=== PATIENT | female | born 1950 | race Caucasian/White ===

== ENCOUNTER 2021-11-11 16:49 | Emergency (ER) | payer MEDICARE, OTHER ==
[~2021-11-11] VITALS: Ht 162.6 cm; Wt 85.2 kg
[2021-11-11 19:16] VITALS: BP 165/79
[2021-11-11 21:14] LABS: HEMATOCRIT 38.1 % (36.0-47.0); HEMOGLOBIN 12.5 g/dL (12.0-15.5); RED BLOOD COUNT 4.19 x10^6/uL (3.50-5.40); RED CELL DISTRIBUTION WIDTH 15.5 % (11.5-14.5); WHITE BLOOD COUNT 5.8 x10^3/uL (4.0-11.0)
[2021-11-11 21:28] LABS: POTASSIUM 3.9 mmol/L (3.5-5.1)
--- NOTE | 2021-11-11 21:46 | PHYS DOC ---
Past Medical History Additional Past Medical Histor: gerd, high colesterol, seasonal allergies Past Surgical History: No Surgical History Smoking Status: Never Smoker Alcohol Use: None Adult General Chief Complaint Chief Complaint: HYPOTENSION HPI HPI The patient is a 70-year-old female with a history of hyperlipidemia and what sounds like chronic fatigue. She tells me she has not been able to work for 3 years because she intermittently becomes very fatigued. She presents for evaluation of an episode of her typical fatigue. She states she became fatigued over the past couple of days. She called her doctor's office and related concern that her blood pressure might be low and was evidently directed to the emergency department for evaluation. Upon initial evaluation here in the emergency department patient is alert and oriented x4, pleasantly and appropriately interactive and in absolutely no acute distress. She is ambulatory with a narrow, steady gait. Her vital signs are completely appropriate and her blood pressure is actually a little elevated. She relates that she has had extensive diagnostic testing for her episodes of fatigue including extensive cardiac testing. No etiology has been identified. Patient tells me that nothing new or different is going on today; this is simply an episode of her usual chronic fatigue which she frequently has. She denies associated fevers, nausea or vomiting, headache, focal or lateralizing weakness, numbness or tingling, neck stiffness/pain/meningismus, vision changes, upper respiratory congestion/rhinorrhea, cough, sore throat, shortness of breath or chest pain of any kind, abdominal pain of any kind, flank pain, midline back pain, dysuria, hematuria, polyuria or oliguria, changes in bowel habits, pain or swelling to arms or legs. Review of Systems Review of Systems A 12 point review of systems was completed and was negative except where noted in HPI above. Physical Exam Physical Exam 70-year-old female appearing nontoxic and in no acute distress. Head is normocephalic and atraumatic. Neck is supple and nontender. Oropharynx is moist. Lungs are clear to auscultation at all stations. There is a normal S1 and S2 without rubs or gallops and capillary refill is appropriate, less than 2 seconds globally. Abdomen is soft, nontender and nondistended. Skin is warm and dry without cyanosis, clubbing or edema. Psychiatrically, the patient demonstrates appropriate mood and affect and is alert. Evaluation of the extremities reveals BUEs and BLEs neurovascularly intact distally with strength out of 5, sensation intact light touch in all nerve distributions, radial, DP and PT pulses 2+ equal bilaterally, capillary refill less than 2 seconds, hands and feet warm and well-perfused. No dependent peripheral edema distally. No calf tenderness or swelling bilaterally. Casey's test is negative bilaterally. Current Patient Data Vital Signs Vital Signs Date Time Temp Pulse Resp B/P (MAP) Pulse Ox O2 Delivery O2 Flow Rate FiO2 11/11/21 19:16 165/79 (107) 11/11/21 19:11 72 18 95 Room Air 11/11/21 17:31 98.3 98.3 Lab Values Laboratory Tests Test 11/11/21 21:05 White Blood Count 5.8 x10^3/uL (4.0-11.0) Red Blood Count 4.19 x10^6/uL (3.50-5.40) Hemoglobin 12.5 g/dL (12.0-15.5) Hematocrit 38.1 % (36.0-47.0) Mean Corpuscular Volume 91 fL (79-100) Mean Corpuscular Hemoglobin 30 pg (25-35) Mean Corpuscular Hemoglobin Concent 33 g/dL (31-37) Red Cell Distribution Width 15.5 % (11.5-14.5) H Platelet Count 254 x10^3/uL (140-400) Sodium Level 140 mmol/L (136-145) Potassium Level 3.9 mmol/L (3.5-5.1) Chloride Level 104 mmol/L (98-107) Carbon Dioxide Level 29 mmol/L (21-32) Anion Gap 7 (6-14) Blood Urea Nitrogen 20 mg/dL (7-20) Creatinine 1.0 mg/dL (0.6-1.0) Estimated GFR (Cockcroft-Gault) 55.0 Glucose Level 87 mg/dL (70-99) Calcium Level 9.0 mg/dL (8.5-10.1) Laboratory Tests 11/11/21 21:05 Laboratory Tests 11/11/21 21:05 EKG EKG [] Radiology/Procedures Radiology/Procedures [] Course & Med Decision Making Course & Med Decision Making Labs are within normal limits. Acute episode of a very chronic issue with no findings of concern on exam and normal vital signs. Will release the patient to follow-up closely with primary care. She understands that if she feels worse instead of better or develops other new symptoms of concern that she will need to return to the emergency department immediately for reevaluation. All questions are answered. Dragon Disclaimer Dragon Disclaimer This electronic medical record was generated, in whole or in part, using a voice recognition dictation system. Departure Departure Impression: Primary Impression: Encounter for medical screening examination Disposition: HOME / SELF CARE / HOMELESS Condition: GOOD Referrals: LUIGI CRUZ MD (PCP) Patient Instructions: Medical Screening Exam Additional Instructions: Your vital signs, examination and blood tests were normal today aside from slightly elevated blood pressure. Please follow-up closely with your primary doctor in the next 2 to 4 days for a reevaluation of your symptoms and a discussion of next best steps in care. Drink plenty of fluids and get plenty of rest. Return to the emergency department right away for worsening symptoms of any kind or with any other new symptoms of concern XIN DAVIS MD Nov 11, 2021 21:46
== END 2021-11-11 21:54 | disposition home or self-care (01) ==
LOC: ER 16:49
DX: R53.82 Chronic fatigue, unspecified (principal); E78.5 Hyperlipidemia, unspecified; K21.9 Gastro-esophageal reflux disease without esophagitis; E78.00 Pure hypercholesterolemia, unspecified
CPT/HCPCS: 36415; 80048; 85027; 99283